=== PATIENT | male | born 1990 | race African-American/Black ===

== ENCOUNTER 2017-02-25 15:05 | Emergency (ER) | payer OTHER ==
--- NOTE | 2017-02-25 15:50 | ED Physician Chart ---
Chief Complaint/HPI - Patient Information Date Seen:: 02/25/17 Time Seen:: 15:40 Chief Complaint:: ABDOMINAL PAIN X 4 DAYS, INTERMITTANT History of Present Illness:: 26-year-old male presents with a four day history of abdominal pain in the left lower quadrant. The pain has been intermittent and the severity is rated as a 5/ 10 at the current time. Pain is worse when he is standing and is accompanied by nausea with two episodes of vomiting on the first day of the pain. No dysuria or urinary frequency. He denies a history of diarrhea or constipation. No testicular Groin pain. No prior history is of similar abdominal pain. No history of surgical intervention in the abdomen. No family history of gallstones or kidney stones. Allergies:: Allergies Allergy/AdvReac Type Severity Reaction Status Date / Time No Known Allergies Allergy Verified 02/25/17 15:31 Vitals:: Vital Signs - 8 hr 02/25/17 15:31 Temp 98.3 F HR 71 RR 17 BP 119/72 O2 Sat % 97 Review of Systems - Review of Systems General/Constitutional: No fever, No chills, No weakness, No diaphoresis, No edema, No loss of appetite Skin: No skin lesions, No rash, No bruising Head: No headache, No light-headedness Eyes: No loss of vision, No pain, No diplopia, Other ( No history of scleral Icterus.) ENT: No earache, No sore throat Neck: No neck pain, No swelling, No thyromegaly, No stiffness, Mass noted Cardio Vascular: No chest pain, No edema GI: Nausea, Vomiting, No diarrhea, Pain, No melena, No constipation, No hematemesis G/U: No dysuria, No frequency, No hematuria Musculoskeletal: No bone or joint pain, No back pain, No muscle pain Endocrine: Polyuria, Polydipsia, No polydipsia Psychiatric: No prior psych history, No suicidal ideation Hematopoietic: No bruising, No lymphadenopathy Neurological: No syncope, No focal symptoms, No weakness, No paresthesia, No headache, No seizure, No dizziness, No confusion, No vertigo Past Medical History - Past Medical History Past Medical History: No significant medical hx Social History: Non Smoker ( Uses alcohol rarely. No illicit drug use.), Lives With Parents, Employed ( Sales.) Family Medical History - Family Member Father Hx Family Cancer: No Hx Family Hypertension: No Hx Family Diabetes: No Hx Family Seizures: No Hx Family AIDS: No Hx Family HIV: No Hx Family COPD: No Hx Family Psychiatric Problems: No Physical Exam - Physical Examination General/Constitutional: Awake, Well-developed, well-nourished, Alert, Non-toxic appearing, Ambulatory Other Gen/Cons comments:: Patient in mild to moderate distress from his complained of abdominal pain. Head: Atraumatic Eyes: Lids, conjuctiva normal, PERRL ( No jaundice.), EOMI Skin: Nl inspection, No rash, No skin lesions, No ecchymosis, Well hydrated, No lymphadenopathy ENMT: External ears, nose nl, Lips, teeth, gums nl Neck: Nontender, Full ROM w/o pain, No JVD, No nuchal rigidity, No bruit, No mass Respiratory: Nl effort/Exclusion, Clear to Auscultation Cardio Vascular: RRR, No murmur, gallop, rubs, NL S1 S2 GI: No organomegaly ( Mild tenderness in the left lower quadrant with no associated rebound or guarding. Negative psoas and obturator sign.), No hernia, Normal BS's : No CVA tenderness, NL external genitalia Other comments:: Circumcised. No testicular masses or tenderness. No inguinal hernia. Extremities: No tenderness or effusion, Full ROM, normal strength in all extremities, No edema Neuro/Psych: Alert/oriented, DTR's symmetric Misc: No paraspinal tenderness Labs/Radiology/EKG Results - Lab Results Results: Laboratory Tests 02/25/17 02/25/17 02/25/17 15:30 16:16 16:16 WBC 3.7 L RBC 4.85 Hgb 13.6 Hct 41.2 MCV 85.0 MCH 28.1 MCHC Differential 33.1 RDW 11.5 Plt Count 166 MPV 7.8 Neutrophils (Manual) 54 Lymphocytes 31 Monocytes 15 H Platelet Estimate ADEQUATE Platelet Morphology NORMAL RBC Morph Micro Appear NORMAL Sodium 139 Potassium 4.2 Chloride 101 Carbon Dioxide 27.7 Anion Gap 14.5 BUN 16 Creatinine 1.3 Est GFR ( Amer) > 60.0 Est GFR (Non-Af Amer) > 60.0 BUN/Creatinine Ratio 12.3 Glucose 100 Calcium 9.6 Total Bilirubin 0.6 AST 25 ALT 27 Alkaline Phosphatase 44 Total Protein 7.4 Albumin 4.2 Globulin 3.2 Albumin/Globulin Ratio 1.3 Amylase Lipase Urine Source RANDOM Urine Color YELLOW Urine Clarity CLEAR Urine pH 6.5 Ur Specific [place] 1.010 Urine Protein NEGATIVE Urine Glucose (UA) NEGATIVE Urine Ketones NEGATIVE Urine Blood NEGATIVE Urine Nitrate NEGATIVE Urine Bilirubin NEGATIVE Urine Urobilinogen 0.2 Ur Leukocyte Esterase NEGATIVE Urine RBC NONE SEEN Urine WBC NONE SEEN Ur Epithelial Cells NONE SEEN Urine Bacteria NONE SEEN 02/25/17 16:16 WBC RBC Hgb Hct MCV MCH MCHC Differential RDW Plt Count MPV Neutrophils (Manual) Lymphocytes Monocytes Platelet Estimate Platelet Morphology RBC Morph Micro Appear Sodium Potassium Chloride Carbon Dioxide Anion Gap BUN Creatinine Est GFR ( Amer) Est GFR (Non-Af Amer) BUN/Creatinine Ratio Glucose Calcium Total Bilirubin AST ALT Alkaline Phosphatase Total Protein Albumin Globulin Albumin/Globulin Ratio Amylase 55 Lipase 83 H Urine Source Urine Color Urine Clarity Urine pH Ur Specific [place] Urine Protein Urine Glucose (UA) Urine Ketones Urine Blood Urine Nitrate Urine Bilirubin Urine Urobilinogen Ur Leukocyte Esterase Urine RBC Urine WBC Ur Epithelial Cells Urine Bacteria Laboratory findings: the CBC showed a mild leukocytosis of 3.7. Platelets were normal in the hemoglobin was within the normal range. Metabolic studies showed no abnormalities of electrolytes, renal function or liver function. The lactic acid was within normal range. Urinalysis was negative for any signs of an acute UTI. The mild elevation of the lipase is probably not clinically significant. CT scan of the abdomen and pelvis failed to visualize the appendix. There were no acute findings on the noncontrast abdominal CT scan. Assessment - Assessment General Assessment: CASE SUMMARY: is 27-year-old male presents with a four day history of intermittent pain in the left lower quadrant. It initially was accompanied by nausea with two episodes of vomiting which has now resolved. Patient has had no diarrhea, dysuria, urinary frequency or hematuria. He has no family history of kidney or gallbladder stones. On physical examination there was mild tenderness in the left lower quadrant with no associated rebound or guarding. CT scan of the abdomen was negative for any acute findings. Laboratory studies showed a mild leukocytosis of 3.7 which has unclear clinical significance. There was some mild elevation of the serum lipase which was probably not clinically significant based on physical examination and CT scan of the abdomen. Patient declined narcotic pain medicines and was discharged with instructions to return in 24 hours for reevaluation. He was further advised that if the pain becomes significantly more severe to return sooner. Discharged in stable condition. MDM DDX Lower abdominal pain: NOT ACUTE APPENDICITIS BASED ON THE PATIENT'S HISTORY AND PHYSICAL EXAM. Not renal colic based on negative CT scan for obstructing stone. Not ischemic colitis based on physical examination, history and CT results. Not diverticulitis based on CT scan. ED Septic Shock - . Is Septic Shock (SBP<90, OR Lactate>4 mmol\L) present?: No - <6hrs of presentation: Vital Signs: Vital Signs - 8 hr 02/25/17 15:31 Temp 98.3 F HR 71 RR 17 BP 119/72 O2 Sat % 97 Reassessment (Disposition) - Reassessment Reassessment Condition:: Improved - Diagnosis Diagnosis:: ABDOMINAL PAIN UNCLEAR CAUSE TAKE TYLENOL FOR MILD TO MODERATE PAIN. RETURN TO THE ER IF YOU HAVE INCREASED PAIN AND RETURN TOMORROW IF YOUR PAIN HAS NOT RESOLVED. - Aftercare/Follow up Instructions Aftercare/Follow-Up Instructions:: Counseled pt regarding lab results/diagnosis & need follow up, Counseled pt & family regarding lab results/diagnosis & need follow up ED Discharge Plan - Patient Disposition Admit/Discharge/Transfer: PT DISCHARGED HOME Condition at Disposition: Improved Instructions: Abdominal Pain
[2017-02-25] MEDS ORDERED: Sodium Chloride 0.9% 1,000 ML IV ONE (15:54)
[2017-02-25] MEDS ORDERED: Morphine Sulfate 4 mg/mL 1mL Syr IVP ONE (15:55)
[2017-02-25 16:24] LABS: HEMATOCRIT 41.2 % (39.0-49.0); HEMOGLOBIN 13.6 gm/dL (13.2-17.3); MEAN CORPUSCULAR HEMOGLOBIN 28.1 pg (26.0-30.0); MEAN CORPUSCULAR HGB CONC 33.1 pg (28.0-36.0); MEAN PLATELET VOLUME 7.8 fl; PLATELET COUNT 166 Th/cmm (150-400); RED BLOOD COUNT 4.85 Mil/cmm (4.30-5.70); RED CELL DISTRIBUTION WIDTH 11.5 % (11.5-20.0)
[2017-02-25 16:32] LABS: WHITE BLOOD COUNT 3.7 Th/cmm (4.8-10.8)
[2017-02-25 16:39] LABS: ALB/GLOB RATIO 1.3 (1.0-1.8); ALKALINE PHOSPHATASE 44 U/L (34-104); ANION GAP 14.5 (7.0-16.0); BILIRUBIN,TOTAL 0.6 mg/dL (0.3-1.0); BUN - UREA NITROGEN 16 mg/dL (7-25); BUN/CREATININE RATIO 12.3; CALCIUM SERUM 9.6 mg/dL (8.6-10.3); CARBON DIOXIDE 27.7 mEq/L (21.0-31.0); CHLORIDE 101 mEq/L (98-107); CREATININE - SERUM 1.3 mg/dL (0.7-1.3); GLUCOSE 100 mg/dL (70-105); POTASSIUM SERUM 4.2 mEq/L (3.5-5.1); SGOT 25 U/L (13-39); SGPT/ALT 27 U/L (7-52); SODIUM SERUM 139 mEq/L (136-145)
[2017-02-25 16:41] LABS: URINE BILIRUBIN NEGATIVE (NEGATIVE); URINE BLOOD NEGATIVE (NEGATIVE); URINE COLOR YELLOW; URINE GLUCOSE (UA) NEGATIVE (NEGATIVE); URINE KETONE NEGATIVE (NEGATIVE); URINE PH 6.5; URINE PROTEIN NEGATIVE (NEGATIVE); URINE UROBILINOGEN 0.2 E.U./dL (0.2 - 1.0)
[2017-02-25 16:42] LABS: URINE BACTERIA NONE SEEN /hpf (NONE SEEN); URINE EPITHELIAL CELLS NONE SEEN /lpf (FEW); URINE RBC NONE SEEN /hpf (0-5); URINE WBC NONE SEEN /hpf (0-5)
[2017-02-25 16:45] LABS: AMYLASE SERUM 55 U/L (29-103); LIPASE 83 U/L (11-82)
[2017-02-25 16:54] LABS: NEUTROPHILS 54 % (40-80); TOTAL CELLS COUNTED 100
[2017-02-25 16:55] LABS: PLATELET ESTIMATE ADEQUATE (NORMAL); PLATELET MORPHOLOGY NORMAL (NORMAL)
--- NOTE | 2017-02-27 12:13 | Diagnostic Imaging Report ---
CT scan of the abdomen and pelvis without intravenous contrast History: Pain Total DLP equals 347 CTDI equals 7.4 Axial sections were obtained from the xiphoid process down to the pubic symphysis. Exam is very limited due to the absence of oral/bowel contrast. Poor delineation of bowel wall margins particularly in the pelvis and right lower quadrant. The appendix could not be clearly visualized. The liver demonstrates a normal size and contour. No focal lesions are seen. The spleen appears normal. No abnormalities are seen in the region of the pancreas. The kidneys appear normal bilaterally. The exam of the pelvis demonstrates preservation of normal fat planes. No abnormal soft tissue masses. No abnormal fluid collections. Impression: 1. Limited exam due to the absence of oral/bowel contrast. Poor delineation of bowel wall margins in the pelvis and right lower quadrant of the abdomen. The appendix could not be clearly visualized. No other obvious acute abnormalities.
== END 2017-02-25 18:05 | disposition home or self-care (01) ==
LOC: ER 15:05 → EDBD 15:05 → ER 18:05
DX: R10.32 Left lower quadrant pain (principal)
CPT/HCPCS: 36415-UA; 80053-TC; 81001-TC; 82150-TC; 83690-TC; 85007-TC; 85027-TC; 96374; J2405; J7030; Z7502